=== PATIENT | female | born 1955 | race Caucasian/White ===

== ENCOUNTER 2018-03-19 00:19 | Inpatient (IN) | payer OTHER ==
[2018-03-19] VITALS (14 sets, daily range): BP systolic 103–179; BP diastolic 67–99
[~2018-03-19] VITALS: Ht 160 cm; Wt 58.5 kg
--- NOTE | ~2018-03-19 | 2DMMODE ---
[facility] [address] [place] [address] 2 D/M-MODE ECHOCARDIOGRAM Name: SEAMUS PATEL Room #: 238-P ADM IN M.R.#: [id number] Admission: 03/19/18 Attend Phys: David Flores Discharge: Date of : 51 Date of Service: 03/19/18 0906 Report #: [id number] THIS REPORT FOR: //name// APPROVED REPORT Study performed: 03/19/2018 08:12:48 EXAM: Comprehensive 2D, Doppler, and color-flow Echocardiogram Patient Location: ICU Room #: 238 Status: routine BSA: 1.56 HR: 77 bpm BP: 103/67 mmHg Other Information Study Quality: Good Indications Diabetes Atrial Fibrillation Hypertension/HDD 2D Dimensions RVDd: 43.55 mm IVSd: 7.49 (7-11mm) LVOT Diam: 22.86 (18-24mm) LVDd: 62.92 mm PWd: 7.66 (7-11mm) Ascending Ao: 34.70 (22-36mm) LVDs: 52.03 (25-40mm) Aortic Root: 36.93 mm IVC: 22.00 mm Volumes Left Atrial Volume (Systole) Single Plane 4CH: 59.27 mL Single Plane 2CH: 111.65 mL LA ESV Index: 66.00 mL/m2 Aortic Valve AoV Peak Elton.: 0.93 m/s AO Peak Gr.: 3.50 mmHg LVOT Max P.76 mmHg LVOT Max V: 0.97 m/s PORSHA Vmax: 4.26 cm2 Mitral Valve E/A Ratio: 3.1 MV Decel. Time: 174.77 ms [facility] [address] [place] [address] 2 D/M-MODE ECHOCARDIOGRAM Name: SEAMUS PATEL Room #: 238-P [facility].#: [id number] Admission: 03/19/18 Attend Phys: David Flores Discharge: Date of : 51 Date of Service: 03/19/18 0906 Report #: [id number] MV E Max Elton.: 1.41 m/s MV A Elton.: 0.45 m/s MV PHT: 50.68 ms IVRT: 87.66 ms Pulmonary Valve PV Peak Elton.: 0.69 m/s PV Peak Gr.: 1.91 mmHg Tricuspid Valve TR Peak Elton.: 2.52 m/s TR Peak Gr.: 25.33 mmHg PA Pressure: 35.00 mmHg Left Ventricle Left ventricle is dilated. There is global hypokinesis of the left ventricle. There is normal left ventricular wall thickness. Left ventricular ejection fraction is moderately decreased. LVEF is 35-40%. This study is not technically sufficient to allow evaluation of the LV diastolic function. Right Ventricle Right ventricle is dilated. Right ventricular systolic function is grossly normal. Atria Left atrium is dilated. Right atrium is dilated. Aortic Valve The aortic valve is normal in structure. No aortic regurgitation is present. There is no aortic valvular stenosis. Mitral Valve The mitral valve is normal in structure. Severe mitral regurgitation with an eccentric jet Tricuspid Valve The tricuspid valve is normal in structure. There is trace tricuspid regurgitation. Estimated PAP 35 mmHg. There is mild pulmonary hypertension. Pulmonic Valve The pulmonary valve is normal in structure. Mild pulmonic regurgitation. Great Vessels The aortic root is normal in size. IVC is dilated and collapses [facility] [address] [place] [address] 2 D/M-MODE ECHOCARDIOGRAM Name: SEAMUS PATEL Room #: 238-P ADM IN M.R.#: [id number] Admission: 03/19/18 Attend Phys: David Flores Discharge: Date of : 51 Date of Service: 03/19/18 0906 Report #: [id number] >50% with inspiration. Pericardium There is no pericardial effusion. <Conclusion> Left ventricle is dilated. LVEF is 35-40%. There is global hypokinesis of the left ventricle. Right ventricle is dilated. Left atrium is dilated. Right atrium is dilated. The aortic valve is normal in structure. The mitral valve is normal in structure. Severe mitral regurgitation with an eccentric jet The tricuspid valve is normal in structure. There is trace tricuspid regurgitation. Estimated PAP 35 mmHg. There is mild pulmonary hypertension. The pulmonary valve is normal in structure. Mild pulmonic regurgitation. There is no pericardial effusion. <ELECTRONICALLY SIGNED> By: Scott Nam MD 03/19/18905 5 5 Scott Nam MD /INF
--- NOTE | ~2018-03-19 | CATHLAB ---
[facility] [address] [place] [address] INVASIVE PROCEDURE REPORT Name: SEAMUS PATEL Room #: 217-P ADM IN M.R.#: [id number] Admission: 03/19/18 Attend Phys: David Flores Discharge: Date of : 51 Date of Service: 03/21/18 1618 Report #: [id number] THIS REPORT FOR: //name// APPROVED REPORT Study performed: 03/21/2018 12:41:47 Patient Details Patient Status: Out-Patient Room #: The patient is a 62 year-old female Event Personnel Ho Ellison Financial Institution Treasurer, Ismael Swift RN, Goldie Sim Sandifer, David Monitor Procedures Performed Left Heart Cath w/or w/o Coronaries [id number] [facility] Indication CardiomyopathyPositive stress test Risk Factors Hypertension, Tobacco History () Procedure Narrative The Right Groin^ was infiltrated with 1% Lidocaine subcutaneous anesthesia. A PINNACLE 4FR Sheath #[id number] sheath was inserted into the RFA^. Coronary angiography was performed using coronary diagnostic catheters. The right coronary system was accessed and visualized with a JR4 catheter. The left coronary system was accessed and visualized with a 4FR JL 5.0 #[id number] catheter. The left ventricle was accessed and visualized with a PIGTAIL catheter. Left ventricular/Aortic Valve gradient assessed via catheter pullback. Hemostasis was obtained with manual pressure following sheath removal without any complications. There was no hematoma. Intraoperative Conscious Sedation Sedation start time: 13.13 Case end Time: 13.45 Fentanyl 25 mcg Versed 1 mg Fluoro Time: 1.43 minutes Dose: DAP 1727 cGycm2 235 mGy Contrast Type and Amount: Omnipaque 55 ml [facility] [place] [address] [place] [address] INVASIVE PROCEDURE REPORT Name: SEAMUS PATEL Room #: 217-P [facility] IN ..#: [id number] Admission: 03/19/18 Attend Phys: David Flores Discharge: Date of : 51 Date of Service: 03/21/18 1618 Report #: [id number] Coronary Angiography The patient's coronary anatomy is right dominant. Diagnostic Cath Left Main Patent vessel, with no flow-limiting lesions. LAD Moderate size caliber vessel, traveling down the anterior wall and wrapping around the apex. There are no flow-limiting lesions. Within the mid segment, there are is minimal luminal irregularities. Diagonal 1 Small-caliber vessel. Circumflex Patent vessel, with no flow-limiting lesions. OM1 Patent vessel, with no flow-limiting lesions. Right Coronary Dominant vessel, with no flow-limiting lesions. R PDA Moderate size caliber vessel, with no flow-limiting lesions. RPLV Moderate size caliber vessel, extends out into the inferolateral wall, with no flow-limiting lesions. Left Ventriculography Left Ventriculography was not performed. An LVEDP was measured and there is no gradient across the outflow tract. Hemodynamics The aortic pressure is 142/74 mmHg with a mean of 96 mmHg. The left ventricular pressure is 140/18 mmHg with a mean of mmHg. The left ventricular end diastolic pressure is 27 mmHg. There was no gradient across the aortic valve upon pullback. Pullback from the left ventricle to the aorta revealed no gradient across the aortic valve. Conclusion 1. Patent [place] coronary arteries, with minimal luminal irregularities within the mid LAD segment. 2. Nonischemic cardiomyopathy. 3. Recommend medical therapy and risk factor management. <ELECTRONICALLY SIGNED> By: Ho Ellison MD 03/21/18 1618 17 17 Ho Ellison MD /INF
--- NOTE | ~2018-03-19 | EKG ---
[place] [address] [facility] [place] [address] ELECTROCARDIOGRAM REPORT Name: SEAMUS PATEL Room #: 238-P ADM IN M.R.#: [id number] Admission: 03/19/18 Attend Phys: Jose Cruz Bernabe MD Discharge: Date of : 51 Report #: [id number] THIS REPORT FOR: //name// [facility] Test Date: 2018-03-19 Test Time: 16:41:19 Pat Name: SEAMUS PATEL Department: Room: 238 P Gender: F Material Expeditor: David NAJERA : 1955 Requested By: Jose Cruz Bernabe Order Number: [id number] MD: Artemio Heck Measurements Intervals [place] Rate: 62 P: 16 ND: 201 QRS: -14 QRSD: 105 T: 109 QT: 472 QTc: 480 Interpretive Statements Sinus rhythm Frequent premature ventricular complexes Poor R wave progression T-wave abnormality, consider lateral ischemia No previous ECG available for comparison Electronically Signed On 03-19-2018 17:13:53 CDT by Artemio Heck [email or web address] <ELECTRONICALLY SIGNED> By: Artemio Heck MD, [facility] 03/19/18 1713 40 40 Artemio Heck MD, [facility] /EPI
--- NOTE | ~2018-03-19 | EKG ---
[address] [employer] [place] [address] ELECTROCARDIOGRAM REPORT Name: SEAMUS PATEL Room #: 238-P ADM IN M.R.#: [id number] Admission: 03/19/18 Attend Phys: Jose Cruz Bernabe MD Discharge: Date of : 51 Report #: [id number] THIS REPORT FOR: //name// [facility] ED Test Date: 2018-03-19 Test Time: 00:31:43 Pat Name: SEAMUS PATEL Department: Room: 238 Gender: F Impregnator: Sabina VILLARREAL : 1955 Requested By: Maicol Epps Order Number: [id number] MD: Artemio Heck Measurements Intervals [place] Rate: 123 P: PA: QRS: -32 QRSD: 97 T: 111 QT: 323 QTc: 462 Interpretive Statements Atrial fibrillation Left axis deviation Poor R wave progression Nonspecific ST and T wave abnormality No previous ECG available for comparison Electronically Signed On 03-19-2018 16:58:27 CDT by Artemio Heck [email or web address] <ELECTRONICALLY SIGNED> By: Artemio Heck MD, [facility] 03/19/18 1658 D: 1030 Artemio Heck MD, [facility] /EPI
[2018-03-19] MEDS ORDERED: IBU600 MG PO (00:40)
[2018-03-19] MEDS ORDERED: NEURONTIN 300300 M1 PO (00:41)
[2018-03-19 01:01] LABS: ABSOLUTE NEUTROPHILS 4.7 thou/uL (1.4-8.2); BASOPHILS 0.3 % (0.0-2.0); EOSINOPHILS 0.9 % (0.0-3.0); HEMATOCRIT 39.8 % (37.0-47.0); HEMOGLOBIN 13.8 gm/dL (12.0-15.0); LYMPHOCYTES 20.1 % (24.0-44.0); MCH 31.6 pg (26.0-34.0); MCHC 34.7 g/dL (28.0-37.0); MCV 91.1 fL (80.0-100.0); MONOCYTES 8.6 % (1.0-8.0); PLATELET COUNT 181 thou/uL (150-400); POLYS 70.1 % (36.0-66.0); RBC 4.37 mil/uL (4.20-5.00); WBC 6.6 thou/uL (4.0-11.0)
[2018-03-19 01:03] LABS: ANION GAP 10 mmol/L (7-16); BUN 17 mg/dL (7-18); CALCIUM 8.2 mg/dL (8.5-10.1); CHLORIDE 104 mmol/L (98-107); CO2 26 mmol/L (21-32); CREATININE 0.8 mg/dL (0.6-1.0); GLUCOSE 336 mg/dL (74-106); POTASSIUM 3.6 mmol/L (3.5-5.1); SODIUM 140 mmol/L (136-145)
[2018-03-19 01:08] LABS: APTT 27.1 Seconds (24.5-32.8); PROTIME 10.3 Seconds (9.3-11.4)
[2018-03-19 01:12] LABS: ALBUMIN 2.9 g/dL (3.4-5.0); LIPASE 101 U/L (73-393); MAGNESIUM 1.9 mg/dL (1.8-2.4); SGOT 49 U/L (15-37); SGPT 92 U/L (30-65); TOTAL BILIRUBIN 0.3 mg/dL (<0.1-1.0); TOTAL PROTEIN 6.1 g/dL (6.4-8.2); TROPONIN-I <0.06 ng/mL (<0.06)
[2018-03-19 01:14] LABS: URINE BILIRUBIN NEGATIVE (Negative); URINE BLOOD 1+ (Negative); URINE CLARITY CLEAR; URINE COLOR YELLOW; URINE GLUCOSE-RANDOM* 3+ (Negative); URINE KETONES NEGATIVE (Negative); URINE NITRITE-REFLEX NEGATIVE (Negative); URINE PROTEIN (DIPSTICK) NEGATIVE (Negative); URINE SPECIFIC GRAVITY 1.015 (1.005-1.035); URINE UROBILINOGEN 0.2 E.U./dl (0.2-1.0)
[2018-03-19 01:15] LABS: URINE LEUKOCYTES-REFLEX 1+ (Negative)
[2018-03-19 01:22] LABS: AMP/METHAMP POSITIVE (Negative); BARBITURATES Negative (Negative); BENZODIAZEPINES Negative (Negative); COCAINE Negative (Negative); METHADONE Negative (Negative); OPIATES Negative (Negative); PCP Negative (Negative)
[2018-03-19 01:29] LABS: SQUAMOUS 4-10 Moderate /LPF (0-3); YEAST-REFLEX Present (None Seen)
[2018-03-19 01:30] LABS: BACTERIA-REFLEX 1-9 Few /HPF (None Seen); CASTS None Seen /LPF (None Seen); CRYSTALS None Seen /LPF (None Seen); MUCUS None Seen strn/LPF (None Seen); URINE RBC 3-10 Few /HPF (0-2); WBC CLUMPS Few (None Seen)
[2018-03-19 08:41] LABS: CHOLESTEROL 117 mg/dL (<200); HDL CHOLESTEROL 38 mg/dL (>40); LDL CHOLESTEROL 61 mg/dL (<100); TC:HDL 3.1 Ratio (Not establshd); TRIGLYCERIDE 93 mg/dL (<150); VLDL 19 mg/dL (<40)
[2018-03-19 23:09] LABS: GLYCOHEMOGLOBIN (HGB A1C) 10.6 % (4.8-5.6)
[2018-03-20 03:47] LABS: ALBUMIN 2.3 g/dL (3.4-5.0); CREATININE 0.6 mg/dL (0.6-1.0); POTASSIUM 3.9 mmol/L (3.5-5.1); TOTAL BILIRUBIN 0.5 mg/dL (<0.1-1.0); TOTAL PROTEIN 4.9 g/dL (6.4-8.2); TROPONIN-I 0.09 ng/mL (<0.06)
[2018-03-20 04:22] VITALS: BP 130/77
[2018-03-20 21:31] VITALS: BP 128/50
[2018-03-21] VITALS (10 sets, daily range): BP systolic 118–154; BP diastolic 63–94
[2018-03-21 04:15] LABS: CALCIUM 8.2 mg/dL (8.5-10.1); CREATININE 0.7 mg/dL (0.6-1.0); POTASSIUM 3.9 mmol/L (3.5-5.1)
[2018-03-21 04:43] LABS: BASOPHILS 0.4 % (0.0-2.0); EOSINOPHILS 2.8 % (0.0-3.0); HEMATOCRIT 39.5 % (37.0-47.0); HEMOGLOBIN 13.6 gm/dL (12.0-15.0); LYMPHOCYTES 23.7 % (24.0-44.0); MCH 31.4 pg (26.0-34.0); MCHC 34.5 g/dL (28.0-37.0); MCV 91.1 fL (80.0-100.0); MONOCYTES 10.9 % (1.0-8.0); PLATELET COUNT 171 thou/uL (150-400); POLYS 62.2 % (36.0-66.0); RBC 4.34 mil/uL (4.20-5.00); RDW 13.1 % (10.5-14.5); WBC 4.9 thou/uL (4.0-11.0)
[2018-03-22 03:28] VITALS: BP 132/95
[2018-03-22 03:54] LABS: CALCIUM 8.2 mg/dL (8.5-10.1); CREATININE 0.7 mg/dL (0.6-1.0)
[2018-03-22 03:57] LABS: ABSOLUTE NEUTROPHILS 3.6 thou/uL (1.4-8.2); BASOPHILS 0.4 % (0.0-2.0); EOSINOPHILS 3.1 % (0.0-3.0); HEMATOCRIT 41.8 % (37.0-47.0); LYMPHOCYTES 21.8 % (24.0-44.0); MCH 30.8 pg (26.0-34.0); MCHC 33.5 g/dL (28.0-37.0); MCV 92.2 fL (80.0-100.0); MONOCYTES 10.2 % (1.0-8.0); PLATELET COUNT 200 thou/uL (150-400); POLYS 64.5 % (36.0-66.0); RBC 4.53 mil/uL (4.20-5.00); RDW 13.1 % (10.5-14.5); WBC 5.6 thou/uL (4.0-11.0)
[2018-03-22 08:17] VITALS: BP 143/76
[2018-03-22] MEDS ORDERED: ASPIRIN325 PO (09:51)
[2018-03-22] MEDS ORDERED: NEURONTIN 300300 M1 PO (09:51)
[2018-03-22] MEDS ORDERED: COREG6.25 MG PO (09:51)
[2018-03-22] MEDS ORDERED: IBU600 MG PO (09:51)
[2018-03-22] MEDS ORDERED: NYSTATIN15 G1 TOP (09:51)
[2018-03-22] MEDS ORDERED: LISINOPRIL10 MG PO (09:51)
[2018-03-22] MEDS ORDERED: PROMETHAZINE12.5 M1 PO (10:08)
[2018-03-22] MEDS ORDERED: AMARYL2 MG PO (10:08)
[2018-03-22] MEDS ORDERED: PEPCID20 MG PO (10:08)
[2018-03-22] MEDS ORDERED: HYDROCODON-ACE1 EAC7 PO (10:08)
[2018-03-22] MEDS ORDERED: CENTRUM SILVER1 EAC2 PO (10:08)
[2018-03-22 11:24] VITALS: BP 128/82
[2018-03-22 14:37] VITALS: BP 141/97
[2018-03-22 15:17] VITALS: BP 141/97
[2018-03-22 15:22] VITALS: BP 141/97
== END 2018-03-22 16:33 | disposition home or self-care (01) | DRG 760 ==
LOC: ER 00:19 → ICU 02:00 → EROBS 02:00 → 2N 02:00 → ICU 05:48 → 2N 22:51 → ENTRNSPT 03-22 16:18 → 2N 03-22 16:33
PROVIDERS: Emergency Medicine; Hospitalist; Internal Medicine Cardiovascular Disease; Nurse Practitioner Family
PROC: 4A023N7 Measurement of Cardiac Sampling and Pressure, Left Heart, Percutaneous Approach (ICD-10-PCS; principal; 2018-03-21)
PROC: B2111ZZ Fluoroscopy of Multiple Coronary Arteries using Low Osmolar Contrast (ICD-10-PCS; principal; 2018-03-21)
DX: N89.8 Other specified noninflammatory disorders of vagina (principal); N39.0 Urinary tract infection, site not specified; I42.9 Cardiomyopathy, unspecified; I50.20 Unspecified systolic (congestive) heart failure; E03.9 Hypothyroidism, unspecified; F15.10 Other stimulant abuse, uncomplicated; E11.9 Type 2 diabetes mellitus without complications; E78.5 Hyperlipidemia, unspecified; F31.9 Bipolar disorder, unspecified; I11.0 Hypertensive heart disease with heart failure; I48.0 Paroxysmal atrial fibrillation; I34.0 Nonrheumatic mitral (valve) insufficiency; R41.0 Disorientation, unspecified; Z79.01 Long term (current) use of anticoagulants; Z98.84 Bariatric surgery status; Z91.14 Patient's other noncompliance with medication regimen
CPT/HCPCS: 10081

== ENCOUNTER 2018-04-19 02:00 | Emergency (ER) | payer OTHER ==
[~2018-04-19] VITALS: Ht 160 cm; Wt 53.1 kg
--- NOTE | ~2018-04-19 | EKG ---
[place] [address] [facility] [place] [address] ELECTROCARDIOGRAM REPORT Name: SEAMUS PATEL [facility] [id number] Admission: 04/19/18 Attend Phys: Discharge: 04/19/18 Date of : 51 Report #: [id number] THIS REPORT FOR: //name// [facility] ED Test Date: 2018-04-19 Test Time: 02:09:40 Pat Name: SEAMUS PATEL Department: Room: Gender: F Carton Stapler: Sabina VILLARREAL : 1955 Requested By: James Frazier Order Number: [id number] MD: Felipe Goodwin Measurements Intervals [place] Rate: 98 P: -34 [place]: 187 QRS: -35 QRSD: 94 T: 147 QT: 357 QTc: 456 Interpretive Statements Atrial fibrillation. Compared to ECG 03/19/2018 16:41:19 Sinus rhythm no longer present Ventricular premature complex(es) no longer present Electronically Signed On 04-19-2018 14:23:07 OFFICE MACHINE SERVICER APPRENTICE by Felipe Goodwin [email or web address] <ELECTRONICALLY SIGNED> By: Felipe Goodwin MD 04/19/18 1423 8 8 Felipe Goodwin MD /[place]
[~2018-04-19 02:00] MED LIST: AMARYL2 MG PO; ASPIRIN325 PO; CENTRUM SILVER1 EAC2 PO; COREG6.25 MG PO; HYDROCODON-ACE1 EAC7 PO; IBU600 MG PO; LISINOPRIL10 MG PO; NEURONTIN 300300 M1 PO; NYSTATIN15 G1 TOP; PEPCID20 MG PO; PROMETHAZINE12.5 M1 PO
[2018-04-19 02:49] LABS: URINE BILIRUBIN NEGATIVE (Negative); URINE BLOOD NEGATIVE (Negative); URINE CLARITY CLEAR; URINE COLOR YELLOW; URINE GLUCOSE-RANDOM* 3+ (Negative); URINE KETONES NEGATIVE (Negative); URINE LEUKOCYTES-REFLEX NEGATIVE (Negative); URINE NITRITE-REFLEX NEGATIVE (Negative); URINE PROTEIN (DIPSTICK) 1+ (Negative); URINE SPECIFIC GRAVITY >= 1.030 (1.005-1.035); URINE UROBILINOGEN 0.2 E.U./dl (0.2-1.0)
[2018-04-19 02:49] LABS: HEMATOCRIT 41.4 % (37.0-47.0); HEMOGLOBIN 13.4 gm/dL (12.0-15.0); MCHC 32.4 g/dL (28.0-37.0); MCV 92.5 fL (80.0-100.0); RBC 4.47 mil/uL (4.20-5.00); RDW 13.5 % (10.5-14.5); WBC 6.1 thou/uL (4.0-11.0)
[2018-04-19 02:50] LABS: ANION GAP 6 mmol/L (7-16); BUN 24 mg/dL (7-18); CALCIUM 8.6 mg/dL (8.5-10.1); CHLORIDE 106 mmol/L (98-107); CO2 29 mmol/L (21-32); CREATININE 0.8 mg/dL (0.6-1.0); GLUCOSE 349 mg/dL (74-106); POTASSIUM 4.4 mmol/L (3.5-5.1); SODIUM 141 mmol/L (136-145)
[2018-04-19 02:59] LABS: ALBUMIN 2.6 g/dL (3.4-5.0); SGOT 51 U/L (15-37); SGPT 61 U/L (30-65); TOTAL BILIRUBIN 0.3 mg/dL (<0.1-1.0); TROPONIN-I <0.06 ng/mL (<0.06)
[2018-04-19 03:00] LABS: AMP/METHAMP POSITIVE (Negative); BARBITURATES Negative (Negative); BENZODIAZEPINES Negative (Negative); COCAINE Negative (Negative); METHADONE Negative (Negative); OPIATES Negative (Negative); PCP Negative (Negative)
[2018-04-19 03:18] LABS: BACTERIA-REFLEX None Seen /HPF (None Seen); CRYSTALS None Seen /LPF (None Seen); HYALINE CASTS 0-3 Few /LPF (None Seen); MUCUS 0-3 Light strn/LPF (None Seen); SQUAMOUS 0-3 Few /LPF (0-3); URINE RBC None Seen /HPF (0-2); URINE WBC-REFLEX None Seen /HPF (0-5)
[2018-04-19 05:24] VITALS: BP 110/88
== END 2018-04-19 05:25 | disposition home or self-care (01) ==
LOC: ER 02:00
PROVIDERS: Emergency Medicine
DX: J90 Pleural effusion, not elsewhere classified (principal); F15.10 Other stimulant abuse, uncomplicated; R06.00 Dyspnea, unspecified; E11.9 Type 2 diabetes mellitus without complications; E78.5 Hyperlipidemia, unspecified; F31.9 Bipolar disorder, unspecified; I48.91 Unspecified atrial fibrillation; E03.9 Hypothyroidism, unspecified; I11.0 Hypertensive heart disease with heart failure; I50.9 Heart failure, unspecified